=== PATIENT | male | born 1940 | race Caucasian/White ===

== ENCOUNTER 2016-10-10 20:32 | Emergency (ER) | payer MEDICARE, OTHER ==
[~2016-10-10] VITALS: Ht 182.9 cm; Wt 113.0 kg
[~2016-10-10 20:32] MED LIST: AMBIEN10 MG; ARICEPT10 MG PO; ASPIRIN LOW DOS81 M2 PO; BABY ASPIRIN81 MG; CALAN SR240 MG OR; CELEXA20 M1; CELEXA20 MG PO; COUMADIN2.5 MG PO; COUMADIN5 MG PO; FISH OIL1000 MG OR; FUROSEMIDE40 MG PO; INDOCIN SR75 MG; INDOCIN SR75 MG OR; K-99 OR; LACTULOSE PO; LORTAB 7.5 OR; NEXIUM40 M1 OR; NEXIUM40 M1 PO; PERCOCET 5/325M1 TAB PO; PROMETHAZINE25 M1; PROSCAR OR; PROTONIX40 M2; RESTORIL7.5 MG PO; SERTRALINE HCL100 MG PO; VERAPAMIL240 M1 OR; VITAMIN D32000 UNI1 PO; ZOFRAN4 MG OR
[2016-10-10] MEDS ORDERED: NORCO1 TA2 PO (21:31)
[2016-10-10 23:22] LABS: HEMATOCRIT 39.7 % (39.0-50.0); HEMOGLOBIN 13.2 g/dl (14.0-18.0); IMMATURE GRANULOCYTES 0.4 % (0.0-1.0); MEAN CELL VOLUME 88.4 fL CALC (80.0-100.0); MEAN CORPUSCULAR HGB 29.4 pG CALC (26.0-32.0); MEAN CORPUSCULAR HGB CONC 33.2 g/L CALC (32.0-36.0); NEUT# 6.28 thou/uL (1.82-7.42); RED BLOOD COUNT 4.49 mill/uL (4.70-6.10); RED CELL DISTRI WIDTH 13.2 % (11.5-15.5)
[2016-10-10 23:29] LABS: INTERNATIONAL NORMALIZED RATIO 1.4 RATIO (0.7-1.3); PROTHROMBIN TIME 16.1 SECONDS (9.0-12.5)
[2016-10-10 23:31] LABS: ALBUMIN 3.7 g/dL (3.2-5.0); ALKALINE PHOSPHATASE 80 u/l (38-126); ANION GAP 14 (6-22 (CALC)); BILIRUBIN, TOTAL 0.5 mg/dL (0.0-1.4); BUN 23 mg/dL (8-23); BUN/CREATININE RATIO 29 (12-20 (CALC)); CALCIUM 8.9 mg/dL (8.4-10.2); CARBON DIOXIDE 25 mmol/l (22-30); CHLORIDE 107 mmol/l (95-108); CREATININE 0.8 mg/dL (0.7-1.3); GFR > 60 ML/MIN (>=60 (CALC)); GFR FOR AFR.AMER. > 60 ML/MIN (>=60 (CALC)); GLUCOSE 99 mg/dL (82-115); POTASSIUM 4.3 mmol/l (3.5-5.1); SGOT/AST 35 u/l (19-48); SGPT/ALT 32 u/l (11-66); SODIUM 142 mmol/l (137-146); TOTAL PROTEIN 6.6 g/dL (6.3-8.2)
[2016-10-11 06:38] VITALS: BP 137/63
== END 2016-10-11 06:39 ==
LOC: ED 20:32
PROVIDERS: Emergency Medicine
DX: S72.331A Displaced oblique fracture of shaft of right femur, initial encounter for closed fracture (principal); Z96.651 Presence of right artificial knee joint; W01.0XXA Fall on same level from slipping, tripping and stumbling without subsequent striking against object, initial encounter; X50.1XXA Overexertion from prolonged static or awkward postures, initial encounter; Y93.01 Activity, walking, marching and hiking; Y92.007 Garden or yard of unspecified non-institutional (private) residence as the place of occurrence of the external cause

== ENCOUNTER 2019-01-10 10:00 | Emergency (ER) | payer MEDICARE, OTHER ==
[~2019-01-10] VITALS: Ht 180.3 cm; Wt 123.0 kg
[~2019-01-10 10:00] MED LIST changes: +NORCO1 TA2 PO
[2019-01-10 11:52] LABS: INTERNATIONAL NORMALIZED RATIO 3.8 RATIO (0.7-1.3); PROTHROMBIN TIME 39.2 SECONDS (9.0-12.5)
[2019-01-10] MEDS ORDERED: ULTRAM50 MG PO (11:58)
[2019-01-10 12:08] VITALS: BP 139/74
== END 2019-01-10 12:08 | disposition home or self-care (01) ==
LOC: ED 10:00
PROVIDERS: Emergency Medicine
DX: S63.502A Unspecified sprain of left wrist, initial encounter (principal); I11.0 Hypertensive heart disease with heart failure; I50.9 Heart failure, unspecified; W19.XXXA Unspecified fall, initial encounter; Y92.009 Unspecified place in unspecified non-institutional (private) residence as the place of occurrence of the external cause; Z79.01 Long term (current) use of anticoagulants; Z91.81 History of falling

== ENCOUNTER 2020-10-23 | Inpatient (IN) | payer MEDICARE, OTHER ==
[~2020-10-23] MED LIST changes: -COUMADIN5 MG PO; +ULTRAM50 MG PO; +WARFARIN5 MG PO
--- NOTE | 2020-10-23 20:28 | NUR ---
RT AT BEDSIDE
[2020-10-23 20:45] LABS: HEMATOCRIT 45.8 % (39.0-50.0); HEMOGLOBIN 14.9 g/dl (14.0-18.0); IMMATURE GRANULOCYTES 1.4 % (0.0-5.0); MEAN CELL VOLUME 91.2 fL CALC (80.0-100.0); MEAN CORPUSCULAR HGB 29.7 pG CALC (26.0-32.0); MEAN CORPUSCULAR HGB CONC 32.5 g/dL CAL (32.0-36.0); NEUT# 8.05 thou/uL (1.82-7.42); RED BLOOD COUNT 5.02 mill/uL (4.70-6.10); RED CELL DISTRI WIDTH 13.4 % (11.5-15.5)
[2020-10-23 21:09] LABS: ACT PARTIAL THROMBO TIME 48.3 SECONDS (20.0-32.5)
[2020-10-23 21:10] LABS: ALBUMIN 3.9 g/dL (3.2-5.0); ANION GAP 12 (6-22 (CALC)); BUN 20 mg/dL (8-23); BUN/CREATININE RATIO 20 (12-20 (CALC)); CARBON DIOXIDE 28 mmol/l (22-30); CHLORIDE 101 mmol/l (95-108); GFR > 60 ML/MIN (>=60 (CALC)); GFR FOR AFR.AMER. > 60 ML/MIN (>=60 (CALC)); LIPASE 110 u/l (23-300); POTASSIUM 3.8 mmol/l (3.5-5.1); SODIUM 138 mmol/l (137-146); TOTAL PROTEIN 7.1 g/dL (6.3-8.2)
[2020-10-23 21:12] LABS: ALKALINE PHOSPHATASE 141 u/l (38-126); BILIRUBIN, TOTAL 0.8 mg/dL (0.0-1.4); SGOT/AST 215 u/l (19-48)
[2020-10-23 21:16] LABS: INTERNATIONAL NORMALIZED RATIO 2.5 RATIO (0.7-1.3)
[2020-10-23 21:25] LABS: D-DIMER 0.62 mg/L (0.19-0.60)
--- NOTE | 2020-10-23 22:00 | NUR ---
REPORT TO ADILSON IZAGUIRRE
--- NOTE | 2020-10-23 22:02 | NUR ---
ATTEMPTED TO CALL REPORT TO ICU, STATES WILL CALL BACK
--- NOTE | 2020-10-23 22:20 | NUR ---
MADE AWARE OF ELEVATED D-DIMER, CTA ORDERED.
--- NOTE | 2020-10-23 22:23 | NUR ---
REPORT CALLED TO ADILSON CORDOBA IN ICU
[2020-10-23 23:15] VITALS: BP 122/55
[2020-10-23 23:30] VITALS: BP 119/47
[2020-10-23 23:45] VITALS: BP 145/59
[2020-10-24] VITALS (13 sets, daily range): BP systolic 125–172; BP diastolic 61–89
--- NOTE | 2020-10-24 | NUR ---
PT. ARRIVED @2320 FROM ED ALONG WITH ER NURSE; PT. TRANSFERRED OVER INTO BED VIA STAFF ASSIST. PT. A/A/OX3; ORIENTED TO ROOM, CALL LIGHT, AND POC; VERBALIZES UNDERSTANDING.PT. IS VERY [place]; O2 SET TO 10LITERS/MIN HF NC AND SPO2 UP TO 92%; WILL CONTINUE TO MONITOR. PT. C/O CHROIC BACK PAIN AND REQUESTING SOMETHING FOR SLEEP; MEDICATED PER EMAR. BOLUS HUNG FROM ED ORDERS. IV SITE PATENT. ENCOURAGED TO CALL FOR ANY NEEDS. CALL LIGHT IS IN REACH. WILL CONTINUE TO MONITOR.
--- NOTE | 2020-10-24 00:01 | NUR ---
PT WAS TRANSPORTED TO ICU FOR ADMISSION ON MONITOR WITH RN.
--- NOTE | 2020-10-24 02:00 | NUR ---
RESTING IN BED WITH EYES CLOSED; NO DISTRESS NOTED; DENIES NEEDS. CALL LIGHT IS IN REACH.
--- NOTE | 2020-10-24 04:50 | NUR ---
RESTING IN BED WITH EYES CLOSED; RESP. EVEN AND UNLABORED. CALL LIGHT IS IN REACH. WILL CONTINUE TO MONITOR.
[2020-10-24 06:06] LABS: URINE BILIRUBIN - DIPSTICK NEGATIVE (NEGATIVE); URINE BLOOD DIPSTICK NEGATIVE (NEGATIVE); URINE COLOR YELLOW; URINE GLUCOSE - DIPSTICK NEGATIVE (NEGATIVE); URINE KETONE NEGATIVE (NEGATIVE); URINE LEUK ESTERASE NEGATIVE (NEGATIVE); URINE PH 5.5 (4.5-8.0); URINE PROTEIN - DIPSTICK NEGATIVE (NEG-TRACE); URINE UROBILINOGEN - DIPSTICK 0.2 E.U./dL (0.2)
[2020-10-24 06:08] LABS: URINE NITRITE - DIPSTICK NEGATIVE (Negative)
[2020-10-24 06:24] LABS: HEMATOCRIT 41.7 % (39.0-50.0); HEMOGLOBIN 13.5 g/dl (14.0-18.0); IMMATURE GRANULOCYTES 1.8 % (0.0-5.0); MEAN CELL VOLUME 92.5 fL CALC (80.0-100.0); MEAN CORPUSCULAR HGB 29.9 pG CALC (26.0-32.0); MEAN CORPUSCULAR HGB CONC 32.4 g/dL CAL (32.0-36.0); NEUT# 5.42 thou/uL (1.82-7.42); RED BLOOD COUNT 4.51 mill/uL (4.70-6.10); RED CELL DISTRI WIDTH 13.2 % (11.5-15.5)
--- NOTE | 2020-10-24 07:14 | NUR ---
PT REPORT RECEIVED FROM SASH STICKER.
[2020-10-24 07:21] LABS: ALKALINE PHOSPHATASE 120 u/l (38-126); ANION GAP 8 (6-22 (CALC)); BILIRUBIN, TOTAL 0.5 mg/dL (0.0-1.4); BUN 20 mg/dL (8-23); BUN/CREATININE RATIO 30 (12-20 (CALC)); CARBON DIOXIDE 28 mmol/l (22-30); CHLORIDE 107 mmol/l (95-108); CREATININE 0.7 mg/dL (0.7-1.3); GFR > 60 ML/MIN (>=60 (CALC)); GFR FOR AFR.AMER. > 60 ML/MIN (>=60 (CALC)); POTASSIUM 4.3 mmol/l (3.5-5.1); SGOT/AST 145 u/l (19-48); SODIUM 138 mmol/l (137-146)
[2020-10-24 07:22] LABS: ALBUMIN 2.7 g/dL (3.2-5.0); C-REACTIVE PROTEIN > 9.0 mg/dL (0-0.9); TOTAL PROTEIN 5.2 g/dL (6.3-8.2)
--- NOTE | 2020-10-24 07:58 | NUR ---
PT SITTING UP IN BED EATING BREAKFAST. SATS ARE MID 80'S ON HIGH FLOW AT 10 LITRES. PT VERY HARD OF HEARING. STATES FEELS BETTER THAN YESTERDAY. ALERT/ORIENTED X3. DIMINISHED LUNG SOUNDS IN ALL [place]. LOOSE COUGH ON REGULAR BASIS.
[2020-10-24] MEDS ORDERED: WARFARIN5 MG PO (08:18)
--- NOTE | 2020-10-24 09:32 | NUR ---
REQUESTED PAIN MED FOR CHRONIC BACK PAIN.
--- NOTE | 2020-10-24 10:19 | NUR ---
PT ON 10L HFNC. O2 SAT IS 97%. DECREASED TO 8L.
--- NOTE | 2020-10-24 12:06 | NUR ---
pt requesting more pain medications, states his doctor told him he could have 2 pills every 4 hours, i told him we have 1 pill every 6 hours but he could discuss it with . when he comes sees him today
--- NOTE | 2020-10-24 16:15 | NUR ---
PT RESTING QUIETLY ON BED, ALERT/ORIENTED X3, ASKED FOR FAMILY TO BE CALLED FOR HIS TOOTHBRUSH AND TOLIETRY ITEMS. NO COMPLAINTS AT THIS TIME, REMAINS ON HIGH FLOW AT 8 LITRES AT THIS TIME
--- NOTE | 2020-10-24 18:15 | NUR ---
PT REQUESTED PAIN MEDICATION AND WAS GIVEN, VITAL SIGNS REMAIN STABLE. PT STATES HE STILL IS NOT GETTING RELIEF FROM PAIN EVEN WITH THE TWO LORTABS. ADVISED THAT THAT IS ALL WE CAN GIVE AT THIS TIME, PLACED PILLOW UNDER LEFT SIDE OF BACK AND HE STATES THAT HELPS A LITTLE.
--- NOTE | 2020-10-24 20:00 | NUR ---
ASSESSMENT COMPLETED. O2 INCREASED TO 9LITERS/MIN NC IN HF SPO2 UP TO 92% FROM 88%.. SET UP PT. TO BRUSH HIS TEETH PER HIS REQUEST. ACCOUNTING CONSULTANT IN AT BEDSIDE ASSISTING WITH BATH. PT. DENIES FURTHER NEEDS. CALL LIGHT IS IN REACH. WILL CONTINUE TO MONITOR.
--- NOTE | 2020-10-24 21:30 | NUR ---
NOTIFIED MD OF SBP SUSTAINING IN THE 160'S MOST OF THE DAY WITH LOWEST ONE BEING 150'S WELL BID VERAPAMIL PT IS GETTING. ALSO WITH LAST SBP IN THE 170'S; NEW ORDERS RECEIVED FOR PRN APRESOLINE; WILL CONTINUE TO MONITOR.
--- NOTE | 2020-10-24 22:04 | NUR ---
PT. RESTING IN BED AND TITRATED O2 UP TO 10LITERS/MIN HF NC; WILL CONTINUE TO MONITOR. CALL LIGHT IS IN REACH.
--- NOTE | 2020-10-24 23:44 | NUR ---
B/P 168/72; MEDICATED WITH ORDERED PRN APRESOLINE PER EMAR; WILL REASSESS.
[2020-10-25] VITALS (13 sets, daily range): BP systolic 105–173; BP diastolic 55–83
--- NOTE | 2020-10-25 02:29 | NUR ---
B/P 174/78 AND C/O BACK PAIN; MEDICATED WITH ORDERED PRN LORTAB 2 TAB PER EMAR; WILL REASSESS AND B/P AND PAIN; WILL CONTINUE TO MONITOR.
--- NOTE | 2020-10-25 04:35 | NUR ---
SBP REMAINING IN THE 170'S AND CONTINUED TO SUSTAIN HIGH POST APRESOLINE ALONG WITH LORTAB WELL WITH NO RESULTS; ALSO NOTIFIED HIM OF PT'S HX CHF AND OF TAKING LASIX PO WITH CURRENT IVF ORDERS; NEW ORDERS RECIEVED AND TO BE CARRIED OUT.
[2020-10-25 06:05] LABS: HEMATOCRIT 40.1 % (39.0-50.0); MEAN CELL VOLUME 90.5 fL CALC (80.0-100.0); MEAN CORPUSCULAR HGB 29.3 pG CALC (26.0-32.0); MEAN CORPUSCULAR HGB CONC 32.4 g/dL CAL (32.0-36.0); RED BLOOD COUNT 4.43 mill/uL (4.70-6.10); RED CELL DISTRI WIDTH 13.1 % (11.5-15.5)
--- NOTE | 2020-10-25 06:20 | NUR ---
PT RESTING COMFORTABLY. SPO2= 92. NAD. VSS. STITCHER OPERATOR TO MONITOR.
[2020-10-25 06:21] LABS: INTERNATIONAL NORMALIZED RATIO 3.2 RATIO (0.7-1.3); PROTHROMBIN TIME 31.8 SECONDS (9.0-12.5)
[2020-10-25 06:41] LABS: ALBUMIN 2.5 g/dL (3.2-5.0); ALKALINE PHOSPHATASE 110 u/l (38-126); ANION GAP 9 (6-22 (CALC)); BILIRUBIN, TOTAL 0.5 mg/dL (0.0-1.4); BUN 19 mg/dL (8-23); BUN/CREATININE RATIO 32 (12-20 (CALC)); CARBON DIOXIDE 24 mmol/l (22-30); CHLORIDE 108 mmol/l (95-108); CREATININE 0.6 mg/dL (0.7-1.3); GFR > 60 ML/MIN (>=60 (CALC)); GFR FOR AFR.AMER. > 60 ML/MIN (>=60 (CALC)); POTASSIUM 3.7 mmol/l (3.5-5.1); SGOT/AST 105 u/l (19-48); SODIUM 138 mmol/l (137-146); TOTAL PROTEIN 4.9 g/dL (6.3-8.2)
--- NOTE | 2020-10-25 07:03 | NUR ---
PT REPORT RECEIVED FROM ORCHESTRA LEADER, PT LAYING IN BED, HIGH FLOW AT 10 LITRES, SATS 92% AT THIS TIME.
--- NOTE | 2020-10-25 10:49 | NUR ---
PT UP TO COMMODE ON OWN WITHOUT USING CALL LIGHT, SAW PT SITTING ON TOLIET WITH OXYGEN OFF, SATS DROPPED TO 79%, EDUCATED PT AGAIN TO USE CALL LIGHT IF NEEDED TO GET UP TO COMMODE WITH HELP AND NOT TO TAKE OFF OXYGEN,
--- NOTE | 2020-10-25 11:11 | NUR ---
RESP CAME TO INST ON INCENTIVESPIROMETER AND FLUTTER VALVE. INST ON HOW TO USE AND HOW OFTEN
--- NOTE | 2020-10-25 13:42 | NUR ---
PTS SENT HIS TOOTHBRUSH AND TOLIETRIES WITH UNDERWEAR UP TO PT.
--- NOTE | 2020-10-25 14:10 | NUR ---
ORDER PLACED FOR MILK OF MAG PER PT REQUEST. STATES HAS NOT HAD A BM AND FEELS LIKE HE NEEDS TO. FAXED TO PHARMACY.
--- NOTE | 2020-10-25 16:13 | NUR ---
PT RESTING IN BED DOES NOT WANT TO GET UP TO RECLINER, HAS NOT HAD BM OF YET.
--- NOTE | 2020-10-25 19:30 | NUR ---
PATIENT IS AWAKE, ORIENTED TO NAME, , YEAR, AND PLACE, LAYS WITH HOB IN AMIN'S POSITION. PATIENT ABLE TO PULL HIMSELF UP, WAS EDUCATED AND WAS ABLE TO RETURN DEMONSTRATION FOR USE OF IS AND FLUTTER VALVE. NURSE ASSESSMENT PERFORMED. RAC 2O G IV INTACT, SALINE LOCKED. O2 SATS WHEN TALKING OR WITH EXERTION ARE 85% TO 89%, SLIGHT SOB NOTED, REPLENISHMENT ANALYST COUGH NOTED. HAS CHRONIC BACK PAIN, RATES 8 OUT OF 10, WAS EXPLAINED IT IS DUE EVERY 4 HRS NEEDED. PATIENT IS HARD OF HEARING, NEEDS REPETITION AND TO BE SPOKEN CLOSE TO EAR. REPORTS HE HAS NOT HAD A BM SINCE ADMISSION, WAS GIVEN MEDICATION FOR IT AND IS WAITING TO HAVE BM. I ALSO ASKED IF HE WAS ABLE TO LAY PRONE WHICH IS RECOMMENDED FOR COVID PATIENTS, HE REFUSES. CALL LIGHT WITHIN REACH. NO OTHER COMPLAINTS OR NEEDS AT THIS TIME.
--- NOTE | 2020-10-25 19:30 | NUR ---
PATIENT'S CALLED HERE FOR UPDATES, SHE WAS ABLE TO PROVIDE CODE, UPDATES PROVIDED, WAS ALSO ABLE TO SPEAK TO PATIENT ON PT PHONE.
--- NOTE | 2020-10-25 19:51 | NUR ---
PATIENT'S SON CALLED HERE FOR UPDATES, HE WAS ABLE TO PROVIDE CODE, UPDATES GIVEN.
--- NOTE | 2020-10-25 20:32 | NUR ---
PATIENT'S LAND SURVEYOR ASSISTANT CALLED HERE, WANTED TO SPEAK TO PATIENT, I ASKED PATIENT IF HE WOULD LIKE TO SPEAK TO HIS LAND SURVEYOR ASSISTANT, PATIENT REFUSED AT THIS TIME, STATES, "I'M NOT UP TO IT RIGHT NOW." LAND SURVEYOR ASSISTANT NOTIFIED.
--- NOTE | 2020-10-25 21:04 | NUR ---
SCHEDULED MEDICATIONS ADMINISTERED, SEE E-MAR. PRN LORTAB ADMINISTERED REQUESTED FOR C/O ACHING BACK PAIN 03/05. PRN RESTORIL ADMINISTERED PER PT'S REQUEST FOR SLEEP. SEE E-MAR. FRESH WATER AND HS SNACK PROVIDED. 200ML CLEAR ROSMERY URINE EMPTIED FROM URINAL. PT DENIES FURTHER NEEDS AT THIS TIME, CALL RODRIGES WITHIN REACH, AGREES TO CALL PRN.
--- NOTE | 2020-10-25 22:15 | NUR ---
CEFTRIAXONE ANTIBIOTIC INFUSING NOW, IV INTACT. PATIENT ATE SANDWICH PROVIDED EARLIER. NO COMPLAINTS OR NEEDS AT THIS TIME, WAS ABLE TO PULL HIOMSELF UP WITH VERBAL CUEING. O2 WAS TITRATED TO 15 L/MIN ON HIGH FLOW NC H, MORE STERILE WATER PROVIDED FOR HUMIDIDFICATION, O2 SATS 88% ON 12 L/MIN, SOB WITH EXERTION, O2 SAT DID DROP WITH EXERTION, PURSED LIP BREATHING ENCOURAGED. WILL CONTINUE TO MONITOR.
[2020-10-26] VITALS (12 sets, daily range): BP systolic 116–170; BP diastolic 54–75
--- NOTE | 2020-10-26 01:22 | NUR ---
PATIENT LAYS IN AMIN'S POSITION, RESTS WITH EYES CLOSED. NO ACUTE DISTRESS SHOWN. O2 SATS 86%-90%, WILL CONTINUE TO MONITOR.
--- NOTE | 2020-10-26 02:23 | NUR ---
PATIENT'S O2 SATS DROPPED TO 78% ON THE MONITOR, WENT TO CHECK ON PATIENT, PATIENT HAD USED THE URINAL, AND HAD TURNED TO HIS LEFT SIDE, PATIENT REQUESTED PAIN MEDICATION, PROVIDED. PATIENT SWALLOWED TABLETS WITH MILK. PATIENT USED IS AND FLUTTER VALVE, WAS ALSO ENCOURAGED PURSED LIP BREATHING, NEED REPEATED DIRECTIONS DUE TO HE IS HARD OF HEARING AND DOES NOT FOLLOW DIRECTIONS THOROUGHLY. WILL CONTINUE TO MONITOR.
--- NOTE | 2020-10-26 02:37 | NUR ---
RT CALLED TO NOTIFY OF PATIENT DESATING 68%-70'S, RT AT BEDSIDE.
--- NOTE | 2020-10-26 03:41 | NUR ---
PATIENT IS AWAKE, MACHINE MILKER ABLE TO DRAW BLOOD. NO ACUTE DISTRESS SHOWN. CALL LIGHT WITHIN REACH.
[2020-10-26 04:41] LABS: INTERNATIONAL NORMALIZED RATIO 3.4 RATIO (0.7-1.3); PROTHROMBIN TIME 34.1 SECONDS (9.0-12.5)
--- NOTE | 2020-10-26 06:35 | NUR ---
PATIENT WAS ON LUCINA;L LIGHT, REQUESTED TO USE BSC. GOT UP TO BSC AND BECAME SEVERELY SOB, DESATED TO 60'S. PATIENT ONLY VOIDED, LAYED BACK IN BED AND STARTED TO MAKE A TIGHT FIST TO EACH HAND, REPORTED HE WAS ANXIOUS. PATIENT WAS REASSURED EACH TIME, WAS DIRECTED TO TAKE DEEP, SLOW BREATHS, RT WAS CALLED PATIENT WILL NEED VAPOTHERM. PATIENT WAS PLACED ON VAPOTHERM 40 L/MIN AND FIO2 100%. SLOWLY RECOVERING. CALL LIGHT WITHIN REACH.
--- NOTE | 2020-10-26 06:48 | NUR ---
PT PLCED ON VAPOTHERM S/P USE OF BEDSIDE TOILET. TAKES PT AN INCREASED RECOVERY TIME C SUPPLEMENTAL O2. PT RAGHU VAPOTHERM WELL. POSSIBLE BIPAP INITIATION IF PT DOES NOT RAGHU VAPOTHERM WELL AT THIS TIME. RN AWARE. FOOT PRESS OPERATOR TO MONITOR.
[2020-10-26 07:06] LABS: HEMATOCRIT 42.1 % (39.0-50.0); HEMOGLOBIN 13.6 g/dl (14.0-18.0); IMMATURE GRANULOCYTES 0.9 % (0.0-5.0); MEAN CELL VOLUME 92.5 fL CALC (80.0-100.0); MEAN CORPUSCULAR HGB 29.9 pG CALC (26.0-32.0); MEAN CORPUSCULAR HGB CONC 32.3 g/dL CAL (32.0-36.0); NEUT# 11.42 thou/uL (1.82-7.42); RED BLOOD COUNT 4.55 mill/uL (4.70-6.10); RED CELL DISTRI WIDTH 13.5 % (11.5-15.5)
--- NOTE | 2020-10-26 07:15 | NUR ---
pt awake in bed; assessment completed at this time; pt alert and oriented; admits to pain rating 10/10; medicated as per orders; no n/v noted; resp labored/ tachypneic; lungs coarse/ exp wheezing/ diminished bases; skin color wnl; o2 per vapotherm at 40L with 100% FiO2; 100% NRB noted over vapotherm; o2 sat 89%; freq loose coughing noted; deep breathing exercises encouraged; hr irreg; sr/pac on monitor; strong pulses; trace edema noted; abd soft with bs present; no bm noted per ticket writer; no urine to inspect at this time; bsc; #20 saline locked to rac; no redness or edema noted at site; plan of care/ am meds explained; call light within reach; will continue to monitor
[2020-10-26 07:16] LABS: ALBUMIN 2.6 g/dL (3.2-5.0); ALKALINE PHOSPHATASE 103 u/l (38-126); ANION GAP 7 (6-22 (CALC)); BILIRUBIN, TOTAL 0.6 mg/dL (0.0-1.4); BUN 25 mg/dL (8-23); BUN/CREATININE RATIO 34 (12-20 (CALC)); CHLORIDE 107 mmol/l (95-108); CREATININE 0.7 mg/dL (0.7-1.3); GFR > 60 ML/MIN (>=60 (CALC)); GFR FOR AFR.AMER. > 60 ML/MIN (>=60 (CALC)); SGOT/AST 80 u/l (19-48); SODIUM 139 mmol/l (137-146)
[2020-10-26 07:22] LABS: CARBON DIOXIDE 29 mmol/l (22-30)
--- NOTE | 2020-10-26 08:30 | NUR ---
awake in bed; vapotherm intact; resp less labored; call light within reach; will continue to monitor
--- NOTE | 2020-10-26 10:23 | NUR ---
resting in bed with eyes closed; o2 per vapotherm; iv intact; call light within reach; will continue to monitor
--- NOTE | 2020-10-26 11:28 | NUR ---
pt with complaints of pain; medicated as per orders; o2 sat noted 54%; lips appears cyanotic; p deny resp distress; o2 via vapotherm noted partially dislodged; re-applied vapotherm; RT summoned to room; deep breathing strongly encouraged/ pt cooperative; pt encouraged to leave oxygen in place; o2 sat up to 93%; will continue to monitor closely;
--- NOTE | 2020-10-26 11:40 | NUR ---
spouse called this comic writer; passcode verified; update provided
--- NOTE | 2020-10-26 12:10 | NUR ---
resting in bed with eyes closed; vapotherm intact and maintained; sr/pac on monitor; iv intact; call light within reach; will continue to monitor
--- NOTE | 2020-10-26 13:25 | NUR ---
Dr Perdomo present at bedside to assess pt and discuss plan of care
--- NOTE | 2020-10-26 14:20 | NUR ---
awake in bed; offers no complaints; o2 per vapotherm intact and maintained; sr/ pac on monitor; morales to gravity; call light within reach; will continue to monitor
--- NOTE | 2020-10-26 16:00 | NUR ---
awake in bed; medicated for pain as per orders; iv intact; o2 per vapotherm; sr/pvc on monitor; morales to gravity; call light within reach; will continue to monitor
--- NOTE | 2020-10-26 17:10 | NUR ---
rn ante partum called this parts data writer; passcode verified; update provided
--- NOTE | 2020-10-26 17:18 | NUR ---
son called this science writer; passcode verified; update provided;
--- NOTE | 2020-10-26 18:18 | NUR ---
call placed to spouse Purnima Calvert per writer producer; updated provided
--- NOTE | 2020-10-26 18:37 | NUR ---
awake in bed conversing on cell phone; o2 per vapotherm; iv intact; sr on monitor; morales to gravity; call light within reach
--- NOTE | 2020-10-26 20:32 | NUR ---
PATIENT SITS UP IN HIGH AMIN'S, FAMILY DROPPED OFF A MILKSHAKE, PATIENT IS ABLE O DRINK IT AND TAKES HIS PAIN MEDICATION, XANAX, BEDTIME MEDS WITHOUT DIFFICULTY. NURSE ASSESSMENT PERFORMED. RESP RATE 22/MIN, NO ACUTE DISTRESS SHOWN, REMAINS ON VAPOTHERM 40 LITERS/MIN A FIO2 100%. O2 SATS 89%-90%. ANTIBIOTIC INFUISNG AT THIS TIME TO R-HAND 20 G IV, INTACT. CALL LIGHT WITHIN REACH. HAS BILAT HEARING AIDS ON. REPORTS HE HAS BEEN USING IS AND FLUTTER VALVE THROUGH OUT DAY.
--- NOTE | 2020-10-26 21:35 | NUR ---
CEFTRIAXONE ANTIBIOTIC INFUSING NOW, R-HAND IV INTACT. NASAL CANNULA SECURED. PATIENT REQUEST FOR HEAD TO BE LOWERED. CALL LIGHT WITHIN REACH.
--- NOTE | 2020-10-26 22:07 | NUR ---
ANTIBIOTIC FINSIHED INFUSING, PATIET O2 SATS 85%, INSTRUCTED FOR DEEP BREATHING AND HOB ELEVATED, WILL CONTINUE TO MONITOR.
--- NOTE | 2020-10-26 22:22 | NUR ---
RT NOTIFIED OF PATIENT'S O2 SATS 85%, RT IN ROOM AT THIS TIME.
[2020-10-27] VITALS (14 sets, daily range): BP systolic 110–152; BP diastolic 48–69
--- NOTE | 2020-10-27 04:19 | NUR ---
PATIENT LAYS IN AMIN'S POSITION, RESTS WITH EYES CLOSED. NO ACUTE DISTRESS SHOWN. CALL LIGHT WITHIN REACH.
--- NOTE | 2020-10-27 05:10 | NUR ---
PATIENT'S O2 SAT 85%, NO RESPIRATORY DISTRESS NOTED, PATIENT WAS RESTING WITH EYES CLOSED. AWAKENS EASILY, AND STARTS TO SHIVER, WAS OFFERED PAIN MEDICATION, RATE ESA 7 OUT OF 10, PAIN MEDICATION AND XANAX PROVIDED, DRINKS WITH MILK, NO DIFFICULTY NOTED WHEN SWALLOWING. WAS INSTRUCTED TO TAKE DEEP BREATHS. HOB IN HIGH AMIN'S. NO OTHER NEEDS AT THIS TIME. CALL LIGHT WITHIN REACH.
--- NOTE | 2020-10-27 05:33 | NUR ---
CALLED RT MICHAEL TO NOTIFY PATIENT'S O2 SAT DROPPING TO LOW 80'S, WAS INSTRUCTED TO TAKE DEEP BREATHS, NO INCREASED WORK OF BREATHING NOTED.
--- NOTE | 2020-10-27 05:37 | NUR ---
RT RODRIGUEZ AT BEDSIDE.
--- NOTE | 2020-10-27 05:42 | NUR ---
PATIENT SLIGHTLY SOB ON 100% VAPO. ADDED NON-REBREATHER FOR 5 MINUTES. SATS INCREASED TO 95%. REMOVED VAPO WITH SATS 89%. PATIETN STATES THAT IT HELPED.
--- NOTE | 2020-10-27 06:09 | NUR ---
NRB PLACED BACK ON DUE O2 SATS 83%, PATIENT WAS INSTRUCTED TO BRETHE IN THROUGH HIS JIGAR, TAKE DEEP BREATHES. NO INCREASED WORK OF BREATHING NOTED. WILL CONTINUE TO MONITOR.
--- NOTE | 2020-10-27 06:13 | NUR ---
RT NOTIFIED OF NRB PLACED BACK ON.
[2020-10-27 06:19] LABS: HEMATOCRIT 42.1 % (39.0-50.0); HEMOGLOBIN 13.7 g/dl (14.0-18.0); MEAN CELL VOLUME 92.3 fL CALC (80.0-100.0); MEAN CORPUSCULAR HGB CONC 32.5 g/dL CAL (32.0-36.0); RED BLOOD COUNT 4.56 mill/uL (4.70-6.10); RED CELL DISTRI WIDTH 13.6 % (11.5-15.5)
--- NOTE | 2020-10-27 06:37 | NUR ---
PT RESTING COMFORTABLY IN BED. NO ACUTE DISTRESS NOTED AT THIS TIME. VSS. NECK BAND MAKER TO [facility].
[2020-10-27 06:42] LABS: ALBUMIN 2.6 g/dL (3.2-5.0); ALKALINE PHOSPHATASE 109 u/l (38-126); ANION GAP 12 (6-22 (CALC)); BILIRUBIN, TOTAL 0.8 mg/dL (0.0-1.4); BUN 31 mg/dL (8-23); BUN/CREATININE RATIO 39 (12-20 (CALC)); CARBON DIOXIDE 26 mmol/l (22-30); CHLORIDE 105 mmol/l (95-108); CREATININE 0.8 mg/dL (0.7-1.3); GFR > 60 ML/MIN (>=60 (CALC)); GFR FOR AFR.AMER. > 60 ML/MIN (>=60 (CALC)); POTASSIUM 4.3 mmol/l (3.5-5.1); SGOT/AST 59 u/l (19-48); SODIUM 139 mmol/l (137-146); TOTAL PROTEIN 5.3 g/dL (6.3-8.2)
--- NOTE | 2020-10-27 06:45 | NUR ---
RECIEVED REPORT FROM ADLISON HELLER. ASSUMED PT CARE.
--- NOTE | 2020-10-27 07:30 | NUR ---
PT RESTING IN BED, A&OX4, ABLE TO MAKE NEEDS KNOWN. PT SR ON TELEMETRY, WITH 1AVB, HR 62. PT DENIES CP AT THIS TIME. PT REMAIN SOB WITH MINIMAL EXERTION, SA02 86% ON VAPOTHERM @ 40LPM/100%, RT NOTIFIED, NRB APPLIED, PT SAT INCREASED TO 92%. LS CLEAR/DIMINISHED, ABDOMEN SOFT, NON-TENDER, BS X4 HYPOACTIVE. LBM 3-30-21. DELAROSA PATENT, DRAINING TO BSD VIA GRAVITY. CALL LIGHT IN REACH. WILL MONITOR.
--- NOTE | 2020-10-27 08:03 | NUR ---
DIETARY ON UNIT, PT REPOSITIONED, BREAKFAST TRAY SET UP. CALL LIGHT IN REACH. WILL MONITOR.
[2020-10-27 08:27] LABS: INTERNATIONAL NORMALIZED RATIO 3.2 RATIO (0.7-1.3)
--- NOTE | 2020-10-27 08:30 | NUR ---
CXR AT BEDSIDE. PT TOLERATED WELL.
--- NOTE | 2020-10-27 08:55 | NUR ---
RT AT BEDSIDE FOR ASSESSMENT. SA02@93%
--- NOTE | 2020-10-27 09:36 | NUR ---
CALLED WITH CODE, UPDATE GIVEN.
--- NOTE | 2020-10-27 10:09 | NUR ---
DR. KELLER AND KIKE COLEMAN AT THE BEDSIDE FOR ASSESSMENT AND TO DISCUSS PLAN OF CARE. NEW ORDERS RECIEVED. DR. KELLER CALLED AND SPOKE WITH ABOUT POSSIBILITY OF INTUBATION AND THAT BIPAP IN NOT AN OPTION DUE TO THE RECENT DIALATION OF PT ESOPHAGUS. VERBALIZED UNDERSTANDING AND IS GOING TO DISCUSS PROGNOSIS WITH DAUGHTER THEN CALL THIS PLASTIC TOOL MAKER BACK WITH INSTRUCTIONS FOR FURTHER INVASIVE TREATMENT. CALL LIGHT IN REACH. WILL MONITOR.
--- NOTE | 2020-10-27 11:00 | NUR ---
PT CALLED, STATED SHE HAD SPOKEN WITH ALL 3 CHILDREN AND THEY ALL AGREE TO INTUBATE SO PT DOES NOT FEEL LIKE THEY HAVE GIVEN UP ON HIM. WILL CONFIRM WITH PT THAT IT IS HIS DESIRE TO BE INTUBATED SHOULD HIS PROGNOSIS WARRANT IT. PT SA02 CONTINUES AT 83-88% ON VAPOTHERM 40LPM/100% AND 15LPM NRB. DR. KELLER AWARE. WILL MONITOR.
--- NOTE | 2020-10-27 11:32 | NUR ---
PT REQUESTING PAIN MEDICINE, NOTIFY [place], AUTOMOTIVE WORKER. NEW ORDERS RECIEVED.
--- NOTE | 2020-10-27 11:40 | NUR ---
PT MEDICATED FOR BACK PAIN 05/05, CALLED WITH CODE. UPDATE GIVEN. CALL LIGHT IN REACH. WILL MONITOR.
--- NOTE | 2020-10-27 13:52 | NUR ---
PT RAGHU VAPOTHER WELL. NAD. DEHYDROGENATION CONVERTER OPERATOR TO MONITOR.
--- NOTE | 2020-10-27 14:00 | NUR ---
PT RESTING IN BED WITH EYES CLOSED. PT STATES HE FEELS BTTER, LESS PAIN AND LESS SOB WITH RESTING. SA02@88% ON VAPOTHERM 40LPM/100%. CALL LIGHT IN REACH. WILL MONITOR.
--- NOTE | 2020-10-27 15:33 | NUR ---
PT RESTING IN BED WITH EYES CLOSED. RESPIRATIONS EVEN/UNLABORED SA02@91% ON VAPOTHERM. CALL LIGHT IN REACH. WILL MONITOR.
--- NOTE | 2020-10-27 15:42 | NUR ---
pt richi vapotherm well at this time. no acute distress noted at this time. vice president of academic affairs to monitor.
--- NOTE | 2020-10-27 16:15 | NUR ---
PT CALLED WITH CODE, UPDATE GIVEN. PT TOLERATING VAPOTHERM. PT RESPIRATIONS EVEN/UNLABORED. SA02@86%
--- NOTE | 2020-10-27 17:35 | NUR ---
PT RESTING C NRB & VAPOTHERM. NO ACUTE DISTRESS NOTED AT THIS TIME. PT COMFORTABLE IN BED, C EYES SHUT. PAVING CREW FOREMAN TO MONITOR. RN AWARE.
--- NOTE | 2020-10-27 17:56 | NUR ---
PT PLACED ON VAPOTHERM, SLIGHTLY WEANED (35LPM/100%) FOR DINNER. PT RESTING COMFORTABLY IN CHAIR AT BEDSIDE. DRIVER LICENSE EXAMINER IN ROOM WITH RT. NAD. VSS. ROAD TRAIN DRIVER TO MONITOR. RN AWARE OF WEANED PARAMETERS.
--- NOTE | 2020-10-27 18:05 | NUR ---
PT RESTING IN BED, RESPIRATIONS EVEN.SA02@89%, RT AT BEDSIDE TO TITRATE VAPOTHERM TO 35LPM/100% CALL LIGHT IN REACH. WILL MONITOR.
--- NOTE | 2020-10-27 19:30 | NUR ---
rECEIVED REPORT FROM NURSE MENA. PT IN BED WITH EYES CLOSED. RESPIRATIONS ARE SOMEWHAT LABORED ON EXERTION. PT HOB ELEVATED. PT HAS VAPOTHERM IN PLACE AT 40L 100% FIO2 AND 33 DEGREES. ALSO HAS NON REBREATHER AT 15L. O2 SAT 91%. WILL CONTINUE TO OBSERVE.
--- NOTE | 2020-10-27 21:30 | NUR ---
PT IN BED WITH EYES OPEN AND COMPLAINED OF SOB. O2 SAT FLUCTUATING 77-81%. PT HAD REMOVED NRB MASK O DRINK FLUIDS. OXYGEN TUBING WAS READJUSTED AND MASK WAS REPOSITIONED ON FACE AND O2 SAT UP TO 88-91%. HEAD OF BED ELEVATED. CALL LIGHT WITHIN REACH. WILL CONTINUE TO OBSERVE.
--- NOTE | 2020-10-27 23:00 | NUR ---
PT IN BED WITH HOB ELEVATED OXYGEN LEVEL CONTINUES TO FLUCTUATE. SPOKE WITH PT REGARDING POSSIBLY NEEDING INTUBATION AND PT STATES HE IS IN AGREEMENT IF NEEDED. CALLED PT AND MADE HER AWARE OF FLUCTUATION IN OXYGEN LEVEL AND POSSIBLE NEED FOR INTUBATIONS AND SHE STATES SHE IS IN AGREEMENTIF NEEDED. DR. KELLER WAS CALLED AND MADE AWARE AND OK TO INTUBATE IF NEEDED.
[2020-10-28] VITALS (19 sets, daily range): BP systolic 111–154; BP diastolic 54–79
--- NOTE | 2020-10-28 01:20 | NUR ---
PT IN BED WITH EYES CLOSED. O2 ST 85% ABD DECREASES WITH EXERTION. PT DOES NOT APPEAR TO BE IN ANT RESPIRATORY DISTRESS. O2 SAT 81%. ENCOURAGED PT TO DEPP BREATHING. RESPIRATORY THERAPIST AT BEDSIDE WELL O2 SAT UP TO 88-89% ON 40 L VAPOTHERM 100% FI02 WELL NRB MASK AT 15L. HOB ELEVATED AND CALL LIGHT IS WITHIN REACH. WILL CONTINUE TO OBSERVE
--- NOTE | 2020-10-28 05:31 | NUR ---
PT IN BED WITH EYES OPEN AND ABLE TO MAKE NEEDS KNOWN. PT WAS MEDICATED FOR BACK PAIN AND HELPFUL. DELAROSA CATHETER IN PLACE AND DRAINING ROSMERY COLORED URINE. CONTINUES ON VAPOTHERM WITH NRB MASK IN PLACE. HOB ELEVATED. CALL LIGHT WITHIN REACH. WILL CONTINUE TO OBSERVE
--- NOTE | 2020-10-28 06:45 | NUR ---
RECIEVED REPORT FROM ADILSON ONTIVEROS. ASSUMED PT CARE.
[2020-10-28 06:53] LABS: INTERNATIONAL NORMALIZED RATIO 2.1 RATIO (0.7-1.3); PROTHROMBIN TIME 21.4 SECONDS (9.0-12.5)
--- NOTE | 2020-10-28 07:30 | NUR ---
PT A&OX4 ABLE TO MAKE NEEDS KNOWN, SR ON TELEMETRY, HR 68. PT DENIES CP. REMAIN ON VAPOTHERM 40LPM/100% AND 15LPM NRB. SA02@85%. LS DIMINISHED. ABD SOFT NON-TENDER, BSX4 HYPOACTIVE. DELAROSA PATENT, DRAINING TO BSD, DARK YELLOW/ROSMERY. CALL LIGHT IN REACH. WILL MONITOR.
--- NOTE | 2020-10-28 08:30 | NUR ---
RT AT BEDSIDE FOR ASSESSMENT
--- NOTE | 2020-10-28 08:55 | NUR ---
PT DAUGHTER, WILVER CALLED WITH CODE. UPDATE GIVEN.
--- NOTE | 2020-10-28 10:30 | NUR ---
DR. KELLER AT BEDSIDE FOR ASSESSMENT AND TO DISCUSS PLAN OF CARE. NEW ORDERS RECIEVED.
--- NOTE | 2020-10-28 12:04 | NUR ---
PT FAMILY BROUGHT PHOTO BOOK, DELIVERED TO PT AT BEDSIDE BY STAFF. PT OFFERED FLUIDS. RESPIRATIONS SHALLOW, LS CLEAR/DIMINHED. REMAINS SOB WITH MINIMAL EXERTION. SA02@80-85%, PT DENIES DISCOMFORT AT THIS TIME. WILL MONITOR.
--- NOTE | 2020-10-28 12:52 | NUR ---
PT CALLED WITH CODE, UPDATE GIVEN.
--- NOTE | 2020-10-28 13:28 | NUR ---
DAUGHTER CONTACTED ABOUT POSSIBLY DOING A SHORT VIDEO CHAT WITH FAMILY OVER MESSENGER DUE TO PT UNABLE TO HAVE VISITORS. DAUGHTER AGREED TO GATHER SIBLINGS TO DO VIDEO CHAT AT 1400. PT NOTFIED AND IN AGREEANCE.
--- NOTE | 2020-10-28 14:17 | NUR ---
SET UP A FAMILY VIDEO CHAT WITH PT AND FAMILY. PT TOLERATED WELL. SA02@87%. PT VERY ENCOURAGED TO TALK AND SEE FAMILY. CALL LIGHT IN REACH. WILL MONITOR.
--- NOTE | 2020-10-28 15:28 | NUR ---
UNABLE TO GET NEW MEDICATION FROM PHARMACY, PER MERVAT. WILL RESCEDULE FOR TOMORROW. MEDICATION UNAVAILBE FROM OUTSIDE SOURCE AT THIS TIME.
--- NOTE | 2020-10-28 16:15 | NUR ---
PT RESTING IN BED WITH EYES CLOSED, RESPIRATION EVEN/UNLABORED, SA02@82% ON VAPOTHERM 40LPM/100%. CALL LIGHT IN REACH. WILL MONITOR.
--- NOTE | 2020-10-28 18:11 | NUR ---
PT RESTING IN BED, WITH EYES CLOSED. SA02@85%. CALL LIGHT IN REACH. WILL MONITOR.
--- NOTE | 2020-10-28 19:38 | NUR ---
RECEIVED REPORT FOR THIS PT AND IN BED WITH EYES OPEN AND ABLE TO MAKE NEEDS KNOWN. SKIN WARM TO TOUCH. DENIES PAIN AND DISCOMFORT. RESPIRATIONS ARE LABORED. CONTINUES ON VAPOTHERM AT 40L 100% FIO2 WELL NRB AT 15L. HOB ELEVATED AND CALL LIGHT WITHIN REACH. WILL CONTINUE TO OBSERVE.
--- NOTE | 2020-10-28 23:52 | NUR ---
PT IN BED WITH EYES OPEN AND ABLE TO MAKE NEEDS KNOWN. RESPIRATIONS LABORED AND ABDOMINAL BREATHING NOTED. O2 SAT 72-81%. PT ENCOURAGED TO DEEP BREATHE AND OXYGEN LEVEL UP TO 82-84% AND FLUCTUATING. NOTED WITH NON PRODUCTIVE WET COUGH. COMPLAINED OF BACK PAIN AND WAS MEDICATED ORDERED FROM PHYSICIAN. REPOSITIONED IN BED WITH 2 PERSON ASSIST. CALL LIGHT IS WITHIN REACH. HOB ELEVATED AND WILL CONTINUE TO OBSERVE
[2020-10-29] VITALS (76 sets, daily range): BP systolic 77–231; BP diastolic 32–96
--- NOTE | 2020-10-29 05:00 | NUR ---
pt in bed with eyes open and able to make needs known. o2 sat 79%. md aware of low saturations. md and family has spoken with family on need for intubaton and discussed with pt and he states that he understands and wpoukld like to wait for intubation due to he states he feels ok. abdominal breathing noted. vapotherm continues at 40l 100% fio2 and non rebreather in place at 15. fluids given and tolerate well. medicated for pain with effectiveness as well as was given xanax po for restlessness. head of bed elevated and call light within reach. will continue to observe.
[2020-10-29 05:38] LABS: HEMATOCRIT 42.9 % (39.0-50.0); HEMOGLOBIN 13.6 g/dl (14.0-18.0); IMMATURE GRANULOCYTES 1.5 % (0.0-5.0); MEAN CELL VOLUME 93.1 fL CALC (80.0-100.0); MEAN CORPUSCULAR HGB 29.5 pG CALC (26.0-32.0); MEAN CORPUSCULAR HGB CONC 31.7 g/dL CAL (32.0-36.0); NEUT# 12.58 thou/uL (1.82-7.42); RED BLOOD COUNT 4.61 mill/uL (4.70-6.10); RED CELL DISTRI WIDTH 13.5 % (11.5-15.5)
[2020-10-29 06:05] LABS: ALBUMIN 2.8 g/dL (3.2-5.0); ANION GAP 12 (6-22 (CALC)); BILIRUBIN, TOTAL 0.8 mg/dL (0.0-1.4); BUN 39 mg/dL (8-23); BUN/CREATININE RATIO 49 (12-20 (CALC)); CARBON DIOXIDE 29 mmol/l (22-30); CHLORIDE 104 mmol/l (95-108); CREATININE 0.8 mg/dL (0.7-1.3); GFR > 60 ML/MIN (>=60 (CALC)); GFR FOR AFR.AMER. > 60 ML/MIN (>=60 (CALC)); POTASSIUM 4.5 mmol/l (3.5-5.1); SODIUM 140 mmol/l (137-146); TOTAL PROTEIN 5.7 g/dL (6.3-8.2)
[2020-10-29 06:06] LABS: ALKALINE PHOSPHATASE 169 u/l (38-126); SGOT/AST 114 u/l (19-48)
--- NOTE | 2020-10-29 06:45 | NUR ---
REPORT RECEIVED FROM RAMA DE ANDA. CARE ASSUMED.
--- NOTE | 2020-10-29 07:10 | NUR ---
PT IS RESTING IN BED. PT IS ALERT AND ORIENTED X3. SHIFT ASSESSMENT COMPLETED AT THIS TIME. IV PATENT X2. PT NOTED TO BE IN RESP DISTRESS AT THIS TIME. AND STATES THAT HE IS HAVING MORE DIFFICULTY IN BREATHING. CALL LIGHT IN REACH. WILL CONTINUE TO MONITOR CLOSELY.
--- NOTE | 2020-10-29 07:20 | NUR ---
PT O2 SATS 60-70S ON 40L VAPO 100% FIO2 AND 15L NRB. PT AGREEABLE TO INTUBATION IF NECESSARY. PHONED LYNNE SHE IS AGREEABLE TO INTUBATION WELL. SECOND WITNESS T SHAHANA RN. PHONED DR BOWLING ORDERS RECEIVED TO INTUBATE. PHONED ER. DR SAMANIEGO AGREES TO COME UP.
--- NOTE | 2020-10-29 07:30 | NUR ---
DR SAMANIEGO AT BEDSIDE AT THIS TIME PT CONTINUES TO AGREE TO INTUBATION. DOC WANTS TO TRY AN INHALER AT THIS TIME. VENTOLIN INHALER GIVEN. PT STATES IN CLEAR THAT HE DOES NOT WANT CHEST COMPRESSIONS. DNR SIGNED WITH DR SAMANIEGO. PT ONLY WANTS INTUBATION AT THIS TIME. DNR SIGNED WITH DR SAMANIEGO AND PATIENT.
--- NOTE | 2020-10-29 07:45 | NUR ---
RT DRAWING ABG AT THIS TIME.
--- NOTE | 2020-10-29 07:55 | NUR ---
DR BOWLING ON UNIT AT THIS TIME DISCUSSING POC WITH DR SAMANIEGO. DECIDED TO PROCEED WITH INTUBATION
--- NOTE | 2020-10-29 08:00 | NUR ---
INTUBATION FOLLOWS WITH DR SAMANIEGO AND Tyson SALAS RT THIS REO ASSET MANAGER AND ANAHI RN 0800- 20MG ETOMIDATE GIVEN BY DR SAMANIEGO 0804- 80MG SUCC GIVEN BY DR SAMANIEGO 0806- PT INTUBATED BY DR SAMANIEGO 7.5 ET TUBE AT 23 LIP LINE 0810- RESTRAINTS IN PLACE 0815- OG PLACED BY DR SAMANIEGO 0820- PROPOFOL STARTED PER TITRATION CHARTING 0825- RADIOLOGY AT BEDSIDE FOR STAT PORTABLE CXR
--- NOTE | 2020-10-29 08:44 | NUR ---
DR BOWLING AT BEDSIDE AT THIS TIME.
--- NOTE | 2020-10-29 09:15 | NUR ---
RT AT BEDSIDE FOR POST INTUBATION ABG
--- NOTE | 2020-10-29 09:30 | NUR ---
RT AT BEDSIDE FOR VENT CHANGES PER MD. TV-500 PEEP-15 RR-22 FIO2-100%
--- NOTE | 2020-10-29 09:50 | NUR ---
DAUGHTER MARIANELA PHONED FOR UPDATE. UPDATE PROVIDED. PT RESTING IN BED INTUBATED AND SEDATED AT THIS TIME. WILL CONTINUE TO MONITOR CLOSELY.
--- NOTE | 2020-10-29 10:00 | NUR ---
LEVOPHED STARTED AT THIS TIME PER TITRATION CHARTING.
--- NOTE | 2020-10-29 10:51 | NUR ---
PHONED [facility] TO INITIATE TRANSFER. ALL PT INFOR GIVEN TO CANDE
--- NOTE | 2020-10-29 11:36 | NUR ---
IN WAITING ROOM REQUESTING TO SEE PATIENT. THIS PUBLIC TRANSPORTATION INSPECTOR WENT DOWN TO EXPLAIN THAT PER [facility] RECOMMENDATIONS [facility] WERE NOT ALLOWED VISITORS. QUESTIONING TRANSFER PROCESS. EXPLAINED PROCESS. AGREEABLE TO TRANSFER AND NOT BEING ABLE TO SEE PT.
--- NOTE | 2020-10-29 11:41 | NUR ---
CANDE CALLED BACK FROM [facility] AND STATES THAT DR CHEW ACCEPTED PT BUT AT THIS TIME THERE IS NO BED AVAILABILITY
--- NOTE | 2020-10-29 12:41 | NUR ---
DR HARTLEY CALLED AND STATED THAT HE IS MR MAYRA PCP AND WOULD ACCEPT HIM A PATIENT AT [facility]. NOTIFIED DR BOWLING.
--- NOTE | 2020-10-29 12:53 | NUR ---
#20G IV TO LFA INITIATED BY THIS SOLO TRUCK DRIVER. HEALTHY AND PATENT.
--- NOTE | 2020-10-29 13:03 | NUR ---
PHONED [facility] SPOKE WITH PRAVEEN. ALL PT INFO GIVEN
--- NOTE | 2020-10-29 13:26 | NUR ---
PHONED LYNNE NUNEZ. VERBAL CONSENT RECEIVED TO TRANSFER PATIENT TO [facility]. SECOND NURSE WITNESS Tiff ROTHMAN RN.
--- NOTE | 2020-10-29 13:45 | NUR ---
LAB AT BEDSIDE AT THIS TIME.
[2020-10-29 14:13] LABS: INTERNATIONAL NORMALIZED RATIO 2.6 RATIO (0.7-1.3); PROTHROMBIN TIME 26.6 SECONDS (9.0-12.5)
--- NOTE | 2020-10-29 14:22 | NUR ---
SPOKE WITH PHARMACY REFERENCE PT/INR. OK TO GIVE COUMADIN
--- NOTE | 2020-10-29 14:59 | NUR ---
CANDE FROM [facility] PHONED TO STATE THAT THEY WOULD HAVE TO DECLINE TRANFER DUE TO CAPACITY
--- NOTE | 2020-10-29 15:59 | NUR ---
PT RESTING IN BED INTUBATED AND SEDATED AT THIS TIME. VSS ON MONITOR.WILL CONTINUE TO MONITOR.
--- NOTE | 2020-10-29 16:30 | NUR ---
PRAVEEN WITH [facility] PHONED WITH BED ASSIGNMENT [address]. REPORT TO BE CALLED TO [phone]. PHONED [facility] TO [facility] FOR TRANSPORT. ETA 40MINUTES
--- NOTE | 2020-10-29 17:15 | NUR ---
REPORT CALLED CORBY AT [facility]. [phone]
--- NOTE | 2020-10-29 17:33 | NUR ---
LYNNE AND FAMILY UPDATED ON TRANSFER. IT WAS DECIDED AT THIS TIME FOR BELONGINGS TO GO WITH PATIENT.
--- NOTE | 2020-10-29 17:50 | NUR ---
PT LEAVES VIA [facility] TO [facility].
--- NOTE | 2020-10-29 17:59 | NUR ---
PHONED LYNNE TO LET HER KNOW BELONGINGS DID NOT GO WITH PT. SHE WILL COME TO CREDIT SUPPORT COUNSELOR. BELONGING AT ER HYDROPRESS OPERATOR DESK.
== END 2020-10-29 17:50 | DRG 208 ==
PROVIDERS: Internal Medicine; ADMIT Internal Medicine
PROC: XW033E5 Introduction of Remdesivir Anti-infective into Peripheral Vein, Percutaneous Approach, New Technology Group 5 (ICD-10-PCS; principal; 2020-10-24)
PROC: 0T9B70Z Drainage of Bladder with Drainage Device, Via Natural or Artificial Opening (ICD-10-PCS; 2020-10-26)
PROC: 0BH17EZ Insertion of Endotracheal Airway into Trachea, Via Natural or Artificial Opening (ICD-10-PCS; 2020-10-29)
PROC: 5A1935Z Respiratory Ventilation, Less than 24 Consecutive Hours (ICD-10-PCS; 2020-10-29)
DX: U07.1 COVID-19 (principal); J12.82 Pneumonia due to coronavirus disease 2019; J96.01 Acute respiratory failure with hypoxia; I11.0 Hypertensive heart disease with heart failure; I50.9 Heart failure, unspecified; I48.91 Unspecified atrial fibrillation; R11.2 Nausea with vomiting, unspecified; R19.7 Diarrhea, unspecified; M54.10 Radiculopathy, site unspecified; F32.9 Major depressive disorder, single episode, unspecified; F41.9 Anxiety disorder, unspecified; R74.8 Abnormal levels of other serum enzymes; Z79.891 Long term (current) use of opiate analgesic; Z79.01 Long term (current) use of anticoagulants; Z66 Do not resuscitate
CPT/HCPCS: S0164